=== PATIENT | female | born 1985 | race Caucasian/White ===

== ENCOUNTER 2016-08-01 11:13 | Emergency (ER) | payer SELFPAY ==
[~2016-08-01] VITALS: Ht 160 cm; Wt 79.0 kg
[~2016-08-01 11:13] MED LIST: AMOXICILLIN/PO500 MG PO; AMOXICILLIN500 MG PO; BACTRIM DS1 TAB OR; BACTRIM DS1 TAB PO; BENADRYL 50MG C50 MG OR; CEFTIN250 MG OR; CEPHALEXIN500 MG PO; CIPRO500 MG OR; CIPROFLOXACN500 MG PO; DENIES CURRENT MEDS; FIORICET PO; HYDROCO/APAP1 TA9 PO; LORTAB 1010 MG PO; LORTAB 7.57.5 MG PO; LORTAB5 PO; MEDDOSEPAK OR; METRONIDAZOL500 MG PO; MORPHINE SUL30 M3 PO; MOTRIN800 MG PO; NAPROSYN500 MG OR; NAPROSYN500 MG PO; NO HOME MEDS; NORCO1 TA1 PO; ONDANSETRON HCL4 MG PO; TAGAMET300 MG OR; TYLENOL # 31 TA1 PO; ULTRAM50 M1 PO; VIA PO; ZANAFLEX4 MG PO; ZOFRAN ODT4 MG OR; ZOFRAN PO; ZOFRAN4 MG/TAB PO; ZPAK PO
[2016-08-01] MEDS ORDERED: TESSALON PER100 MG PO (11:28)
[2016-08-01] MEDS ORDERED: ZITHROMAX250 MG PO (11:28)
[2016-08-01 11:34] VITALS: BP 118/69
== END 2016-08-01 11:34 | disposition home or self-care (01) | DRG 203 ==
LOC: ED 11:13
DX: J20.9 Acute bronchitis, unspecified (principal); F17.210 Nicotine dependence, cigarettes, uncomplicated; G89.29 Other chronic pain; M54.2 Cervicalgia